=== PATIENT | female | born 1975 | race Caucasian/White ===

== ENCOUNTER 2021-10-18 14:00 | Outpatient (RCR) | payer OTHER, SELFPAY ==
--- NOTE | 2021-10-07 11:09 | PTOPEVAL ---
PHYSICAL THERAPY EVALUATION and PLAN OF CARE Thank you for referring Dede Conrad to [facility].? Dede will be seen in 2 weeks for follow-up and we will determine need for further follow-ups about every other week. Please review, sign, date and return this plan of care OTILIA. I agree with and certify that the following plan of care is medically necessary. Referring Physician Date Attending Provider: Debora Rios MD Evaluation Diagnosis stress incontinence Subjective Information Uses one liner throughout the Query Text:As Reported By Patient/ day. Will occasionally feel Family like she will leak without a stress event. States that using the stepper at the gym or squats at the gym she will leak Pain Score Pain Score 0: Self Report Lower Extremity Range of Motion General Lower Extremity Range of Motion Gross Lower Extremity Range of Motion limted bilateral hip internal Comments rotation, right>left Lower Extremity Muscle Strength Testing General Lower Extremity Strength Gross Lower Extremity Strength bilateral hip flexion: 4/5 knee flexion/extension: 5/5 adduction: 5/5 Pelvic Health Evaluation Pelvic Floor Assessment Permission Received for External/ Yes: external Internal Perineal Exam External Perineal Body Mobility Present Voluntary External Perineal Body Mobility Present Involuntary Sustained Levator Ani Strength 3+/5 for 5-6seconds Additional Comments palpated a good lift of levator ani through clothing; patient did note that this type of contraction felt different than the kegals she was trying to do at home. Pelvic Health Therapy Pelvic Health Exercise Isolated Levator Ani Contraction hooklying, 5-6seconds x10 reps Query Text:Position, Hold/Relaxation Time, Repetitions Overflow Technique, Hip Add with Ball hooklying with ball and with Hip, Hip Abd with Band band x10 of each; Query Text:Position, Hold/Relaxation Time, Repetitions Other Exercises education: normal bladder Query Text:Record Sets, Repetitions, function, abnormal bladder Resistance and Position function, difference between stress and urge incontinence; she describes to me an event that if she has a very full bladder she will void and feel complete. Then within a short time she will feel like she
--- NOTE | 2021-12-08 17:15 | PCPTNOTE ---
PHYSICAL THERAPY DISCHARGE SUMMARY Attending Provider: Debora Rios MD Patient:Dede Conrad Date of :1975 Dede participated in physical therapy for stress incontinence. She was provided with education regarding healthy bladder habits and habits to reduce leaks. She was also educated and instructed in pelvic floor strengthening. Her last attended visits was 10/18/21 at which time she requested to continue her exercises at home and would contact me if needed. We have received no communication in 2 months, therefore, we will D/C chart at this time. If she requires further care in the future we will be happy to assist. Thank you for referring this patient to [facility]. Please review, sign, date and return this discharge summary OTILIA. I have been updated about the patient's current status and I agree with discharge from the above service at this time. Referring Physician Date
== END 2021-12-09 09:26 | disposition home or self-care (01) ==
LOC: ANHPT 14:00
PROVIDERS: PCP Obstetrics & Gynecology; Visit Provider Obstetrics & Gynecology
DX: N39.3 Stress incontinence (female) (male) (principal)
CPT/HCPCS: 97110; 97112; 97162; 97530

== ENCOUNTER 2023-10-03 08:28 | Outpatient (CLI) | payer OTHER, SELFPAY ==
--- NOTE | ~2023-10-03 | MM_ITS ---
EXAMINATION: MM screening rosalba BI w negro HISTORY: Screening TECHNIQUE: Craniocaudal and mediolateral oblique 3-D tomosynthesis images were obtained and synthetic 2-D images were generated. CAD analysis was submitted and interpreted. COMPARISON: No prior mammogram is available for comparison at this institution. BREAST PARENCHYMAL COMPOSITION: Not dense: There are scattered areas of fibroglandular density. FINDINGS: There are bilateral breast asymmetries centered in the upper outer quadrant of both breasts . There are no suspicious calcifications or architectural distortion. IMPRESSION: 1. Bilateral breast asymmetries. 2. Recommend comparison to previous outside mammograms to assess stability. BI-RADS Category 0: Incomplete: Needs additional imaging evaluation. Reviewed, dictated and finalized at location A. E SPECIALIST
== END 2023-10-03 08:29 | disposition home or self-care (01) ==
LOC: CHSIMG 08:29
PROVIDERS: PCP Family Medicine; Visit Provider Family Medicine
DX: Z12.31 Encounter for screening mammogram for malignant neoplasm of breast (principal); R92.8 Other abnormal and inconclusive findings on diagnostic imaging of breast
CPT/HCPCS: 77063; 77067

== ENCOUNTER 2024-10-18 07:18 | Outpatient (CLI) | payer OTHER, SELFPAY ==
--- NOTE | ~2024-10-18 | MM_ITS ---
EXAMINATION: MM screening rosalba BI w negro HISTORY: Screening mammogram TECHNIQUE: Craniocaudal and mediolateral oblique 3-D tomosynthesis images were obtained and synthetic 2-D images were generated. CAD analysis was submitted and interpreted. COMPARISON: 10/03/2023, 09/24/2021 BREAST PARENCHYMAL COMPOSITION:Dense: The breasts are heterogeneously dense, which may obscure small masses. FINDINGS: No suspicious mass, calcification, or architectural distortion are identified in either shelby ast to suggest malignancy. There has been no suspicious interval change. IMPRESSION: No mammographic evidence of malignancy. Recommend routine screening mammography in one year. BI-RADS Category 1: Negative Reviewed, dictated and finalized at location .
--- OUTSIDE RECORDS SUMMARY | 2024-10-18 07:28 | XMS_ITS | Encounter Summary ---
Author Organization [facility] Address 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
--- OUTSIDE RECORDS SUMMARY | 2024-10-18 07:28 | XMS_ITS | Clinical Summary ---
Author Organization [facility] Address [address] [place] [address] Care Team Providers Care Ear Nose Throat Physician Name Role Phone Unavailable Primary Care Provider Unavailabl e Source Comments [facility] [employer],non-owned Affiliates and Associated Physician Practices is amultiple site organization consisting of ambulatory clinics and hospital sitesin [place], [place], [place] and [place]. This disclosure is being madepursuant to the Care Everywhere program and may not contain all information available regarding this patient. Last updated 18.[facility] [employer] Social History Tobacco Use Types Packs/Day Years Used Date Smoking Tobacco: Never Assessed Sex and Gender Information Value Date Recorded Sex Assigned at Not on file Gender Identity Not on file Sexual Orientation Not on file Plan of Treatment Health Maintenance Due Date Last Done Comments COLOGUARD (AGES 45-75) - COL ON CA SCREENING 1975 COLON MONITORING 1975 COLONOSCOPY - COLON CA SCREENING 1975 CT COLONOGRAPHY - COLON CA SCREENING 1975 Colorectal Cancer Screening 1975 FIT - COLON CA SCREENING 1975 FLEX SIG - COLON CA SCREENING 1975 LIPID TESTING 1975 MAMMOGRAM 1975 PAP SMEAR 1975 HIV SCREENING 1990 HEPATITIS C SCREENING 08/24/1993 DTAP/TDAP/TD VACCINES (1 - Tdap) 1994 HEPATITIS B VACCINE (1 of 3 - 19+ 3-dose series) 1994 COVID-19 VACCINE ( - 2023-2 5 season) 2024 INFLUENZA VACCINE (#1) 2024 DEPRESSION SCREENING 08/07/2024 ZOSTER VACCINE (1 of 2) 2025 HIB VACCINE Aged Out No longer eligi ble based on patient's age to complete this topic HPV VACCINE Aged Out No longer eligi ble based on patient's age to complete this topic MENINGOCOCCAL (Group B) VACC INE SHARED DECISION-MAKING Aged Out No longer eligibl e based on patient's age to complete this topic MENINGOCOCCAL GROUPS A/C/Y/W VACCINE Aged Out No longer eligible b ased on patient's age to complete this topic PNEUMOCOCCAL VACCINE Aged Out No long er eligible based on patient's age to complete this topic
--- OUTSIDE RECORDS SUMMARY | 2024-10-18 07:28 | XMS_ITS | Encounter Summary ---
Author Organization [facility] Address [address] [place] [address] Care Team Providers Care Loan Secretary Name Role Phone Unavailable Primary Care Provider Unavailabl e Encounter Details Date Type Department Care Team (Late st Contact Info) Description 05/25/2000 Outpatient Historical [facility] HERZOG Marsh, Jens Ellis MD [address] [place] [phone] Social History Tobacco Use Types Packs/Day Years Used Date Smoking Tobacco: Never Assessed Comments Unknown Sex and Gender Information Value Date Recorded Sex Assigned at Not on file Legal Sex Female 3:18 AM INSOLE DOUBLER Gender Identity Not on file Sexual Orientation Not on file documented as of this encounter Plan of Treatment Not on file documented as of this encounter Visit Diagnoses Not on filedocumented in this encounter
--- OUTSIDE RECORDS SUMMARY | 2024-10-18 07:28 | XMS_ITS | Referral Summary ---
Author Organization [facility] Address [address] [place] [address] Care Team Providers Care Linux Solaris Administrator Name Role Phone Unavailable Primary Care Provider Unavailabl e Source Comments [facility],non-owned Affiliates and Associated Physician Practices is amultiple site organization consisting of ambulatory clinics and hospital sitesin [place], [place], [place] and [place]. This disclosure is being madepursuant to the Care Everywhere program and may not contain all information available regarding this patient. Last updated 18.[facility] [employer] Social History Tobacco Use Types Packs/Day Years Used Date Smoking Tobacco: Never Assessed Sex and Gender Information Value Date Recorded Sex Assigned at Not on file Gender Identity Not on file Sexual Orientation Not on file Plan of Treatment Not on file
--- OUTSIDE RECORDS SUMMARY | 2024-10-18 07:28 | XMS_ITS | Encounter Summary ---
Author Organization [facility] Address [address] [place] [address] Care Team Providers Care Manager Psychiatry Name Role Phone Unavailable Primary Care Provider Unavailabl e Encounter Details Date Type Department Care Team (Late st Contact Info) Description 08/27/2002 Outpatient Historical [facility] FIRE CONTROL OFFICER - Medical [address] [address] Jens Marsh MD [address] [address] Social History Tobacco Use Types Packs/Day Years Used Date Smoking Tobacco: Never Assessed Comments Unknown Sex and Gender Information Value Date Recorded Sex Assigned at Not on file Legal Sex Female 3:18 AM YARDAGE CONTROL OPERATOR Gender Identity Not on file Sexual Orientation Not on file documented as of this encounter Plan of Treatment Not on file documented as of this encounter Visit Diagnoses Not on filedocumented in this encounter
--- OUTSIDE RECORDS SUMMARY | 2024-10-18 07:28 | XMS_ITS | Clinical Summary ---
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
--- OUTSIDE RECORDS SUMMARY | 2024-10-18 07:28 | XMS_ITS | Encounter Summary ---
Author Organization [facility] Address [address] [place] [address] Care Team Providers Care Senior Oracle Adf Developer Name Role Phone Unavailable Primary Care Provider Unavailabl e Encounter Details Date Type Department Care Team (Latest Contact Info) Description 05/29/2000 Outpatient Historical [facility]NON-PATIENT Jens Marsh MD [address] [place] [phone] Gynecological examination (Primary Dx) Social History Tobacco Use Types Packs/Day Years Used Date Smoking Tobacco: Never Assessed Comments Unknown Sex and Gender Information Value Date Recorded Sex Assigned at Not on file Legal Sex Female 3:18 AM FLAG SIGNALER Gender Identity Not on file Sexual Orientation Not on file documented as of this encounter Plan of Treatment Not on file documented as of this encounter Visit Diagnoses Diagnosis Gynecological examination- Primary documented in this encounter
--- OUTSIDE RECORDS SUMMARY | 2024-10-18 07:28 | XMS_ITS | Clinical Summary ---
Author Organization [facility] Address [address] [place] [address] Care Team Providers Care Lead Driver Name Role Phone No, Physician Primary Care Provider [phone] Allergies Active Allergy Reactions Criticality Noted Date Comments Codeine Mental status changes Reaction: CONFUSION, Sulfa (Sulfonamide Antibiotics) Nausea only,Vomiting Reaction: Nausea, Vomiting, Medications No known medications Active Problems Problem Noted Date Diagnosed Date Well woman exam 04/18/2019 Family history of BRCA2 gene positive 04/18/2019 Assessment & Plan (04/19/2019 3:41 PM CDT): Obtain mammogram Identified as high risk and start breast risk assessment program Dyspareunia, female 04/18/2019 Assessment & Plan (04/19/2019 3:41 PM CDT): -unknown etiology -wet mount normal, ph WNL -check imaging -nromal UA Abnormal cytology findings 09/18/2014 Overview (11/10/2016): LGSIL (low grade squamous intraepithelial dysplasia) Surgical History Surgery Date Site/Laterality Comments SECTION section OTHER SURGICAL HISTORY multiparity: Bilateral tubal ligation OTHER SURGICAL HISTORY Abnormal PAP: Colposcopy Medical History Medical History Date Comments Gestational diabetes mellitus (GDM) Diabetes gestational Hx Other Medical multiparity History of abnormal cervical Papanicolaou smear Abnormal PAP; Comments: [facility] [place]18[place] - Family History Medical History Relation Name Comments Breast cancer Cousin 1 Colon cancer Cousin 1 Pancreatic cancer Cousin 2 Lung cancer Other 1 Family history of Cancer -lung; Coronary artery disease Other 2 Fami ly history of Coronary artery disease; Diabetes type II Other 3 Family hist ory of Diabetes -Type II; Relation Name Status Comments Cousin 1 Cousin 2 Other 1 Other 2 Other 3 Social History Tobacco Use Types Packs/Day Years Used Date Smoking Tobacco: Never Smokeless Tobacco: Never Alcohol Use Standard Drinks/Week Comments Not Currently 0 (1 standard drink = 0.6 oz pur e alcohol) stopped 04/10/19 Personal Safety Answer Date Recorded Getting School Help Needed Not on file 10/19 Comments Unknown Sex and Gender Information Value Date Recorded Sex Assigned at Not on file Legal Sex Female 9:04 AM TERMITE CONTROL REPRESENTATIVE Gender Identity Not on file Sexual Orientation Not on file Obstetrics History Last Filed Vital Signs Vital Sign Reading Time Taken Comments Blood Pressure 112/70 04/18/2019 8:23 AM CDT Pulse 88 01/28/2016 10:57 AM CDT Temperature - - Respiratory Rate - - Oxygen Saturation - - Inhaled Oxygen Concentration - - Weight 69.9 kg (154 lb) 04/18/2019 8:23 AM CDT Height 162.6 cm (5' 4 ) 04/18/2019 8:23 AM CDT Body Mass Index 26.43 04/18/2019 8:23 AM CDT Plan of Treatment Not on file Insurance [employer] [place] [address] [employer] Care Teams Lead Driver Relationship Specialty Start Date End Date No, Physician PCP - General 05/23/19
--- OUTSIDE RECORDS SUMMARY | 2024-10-18 07:28 | XMS_ITS | Clinical Summary ---
Author Organization [facility] Address [address] [place] [address] Care Team Providers Care Internal Recruiter Name Role Phone Unavailable Primary Care Provider Unavailabl e Allergies Active Allergy Reactions Criticality Noted Date Comments Sulfa Antibiotics Vomiting Medium 07/07/2020 Medications vitamin D3, cholecalciferol, 75 MCG (3000 UT) Tab tablet Take 3,000 Units by mouth daily. Active vitamin C 250 MG tablet Take 250 mg by mouth daily. Active Apple Cider Vinegar 500 MG Tab Active Social History Tobacco Use Types Packs/Day Years Used Date Smoking Tobacco: Never Smokeless Tobacco: Never Alcohol Use Standard Drinks/Week Comments Yes 3.3 (1 standard drink = 0.6 oz p ure alcohol) Comments Unknown Sex and Gender Information Value Date Recorded Sex Assigned at Not on file Legal Sex Female 3:47 PM CDT Gender Identity Not on file Sexual Orientation Not on file Last Filed Vital Signs Vital Sign Reading Time Taken Comments Blood Pressure 100/66 07/14/2020 9:45 AM SERVICE SUPERVISOR Pulse 57 07/14/2020 9:45 AM SERVICE SUPERVISOR Temperature 36.8 C (98.2 F) 07/14/2020 9:09 AM SERVICE SUPERVISOR Respiratory Rate 15 07/14/2020 9:45 AM SERVICE SUPERVISOR Oxygen Saturation 100% 07/14/2020 9:45 AM SERVICE SUPERVISOR Inhaled Oxygen Concentration - - Weight 63.5 kg (140 lb) 07/07/2020 2:59 PM SERVICE SUPERVISOR Height 162.6 cm (5' 4 ) 07/07/2020 2:59 PM SERVICE SUPERVISOR Body Mass Index 24.03 07/07/2020 2:59 PM SERVICE SUPERVISOR Plan of Treatment Health Maintenance Due Date Last Done Comments Cervical Cancer Screening Pa p Smear (Age 30 to 64) Every 3 Years 1975 Annual Physical 1978 Hepatitis C 1993 DTaP, Tdap and Td Vaccines ( 1 - Tdap) 1994 Hepatitis B Vaccines (1 of 3 - 19+ 3-dose series) 1994 Cervical Cancer Screening Pa p with HPV Testing (Age 30 to 64) Every 5 Years 2005 Cervical Cancer Screening wi th HPV 2005 Mammogram Screening 2015 COVID-19 Vaccine (2023-2 5 season) 2024 Influenza Adult (#1) 2024 Colorectal Cancer Screening Colonoscopy (10 Years) 07/14/2030 07/14/2020, 07/14/2020 Meningococcal B Vaccine Aged Out No l onger eligible based on patient's age to complete this topic Meningococcal Vaccine Aged Out No chivo alisia eligible based on patient's age to complete this topic Pneumococcal Vaccine: Pediatrics (0 to 5 Years) and At-Risk Patients (6 to 64 Years) Aged Out No longer eligible b ased on patient's age to complete this topic RSV Immunizations Under 20 Months Aged Out No longer eligible b ased on patient's age to complete this topic Procedures Procedure Name Priority Date/Time Associated Diagnosis Comments COLONOSCOPY Routine 07/14/2020 8:42 AM SERVICE SUPERVISOR from Last 3 Months or Most Recently Relevant to Health Maintenance Results * Colonoscopy (07/14/2020 8:42 AM SERVICE SUPERVISOR) Narrative Nick Porter MD - 07/14/2020 8:42 AM SERVICE SUPERVISOR Nick Porter MD 07/14/2020 9:13 AM NICK PORTER MD, FACG, FACP COLONOSCOPY This is a 44-year-old female with history of x 1, tubal ligation and stress/anxiety who now presents for colonoscopy for family history of colon cancer in her brother. GI review of systems is negative. No endocarditis risk factors. Allergies: Sulfa (N/V/D). Medications: see list. VITALS: Stable. LUNGS: Clear. HEART: RRR. S1/S2 normal. ABDOMEN: NABS/NT. The procedure of colonoscopy, its indications, alternatives of barium studies and risks including perforation, bleeding, infection, reaction to medication as well as the possible need for blood or surgery were discussed with the patient prior to the procedure. The patient voices understanding, agrees to proceed and provides informed consent. INDICATION: Screening for colon cancer/Family history of colon cancer. POST-OP: One polyp removed. SEDATION: Per anesthesia. PREP: Good. With the patient in the left lateral decubitus position, the Olympus [id number] colonoscope was introduced into the rectum and advanced easily to the Terminal Ileum. Careful inspection of the mucosa was made upon insertion and withdrawal of the endoscope. FINDINGS: Terminal ileum: distal 5 cm normal. Cecum, transverse colon, descending colon, sigmoid colon and rectum including retroflexion normal. Ascending colon: 8 mm sessile polyp removed with cold snare polypectomy without bleed. No masses, AVMs, colitis or diverticulosis seen. No complications, blood loss or implants. ASSESSMENT AND PLAN: Screening for colon cancer/Family history of colon cancer: - One polyp removed and family history of colon cancer - If no cancer, repeat colonoscopy in five years Thank you for allowing me to care for your patient. She will follow-up with Dr. Crisostomo as needed. Nick Porter M.D. Nick Porter MD GI PROCEDURE ORDERABLES Fin al Result from Last 3 Months or Most Recently Relevant to Health Maintenance Insurance
--- OUTSIDE RECORDS SUMMARY | 2024-10-18 07:28 | XMS_ITS | Patient Health Summary ---
Author Organization [facility] Address [address] [place] [address] Care Team Providers Care Tieing Machine Operator Name Role Phone Unavailable Primary Care Provider Unavailabl e Note from [facility],non-owned Affiliates and Associated Physician Practices is amultiple site organization consisting of ambulatory clinics and hospital sitesin [place], [place], [place] and [place]. This disclosure is being madepursuant to the Care Everywhere program and may not contain all information available regarding this patient. Last updated 18.[facility] [employer] Social History Tobacco Use Types Packs/Day Years Used Date Smoking Tobacco: Never Assessed Sex and Gender Information Value Date Recorded Sex Assigned at Not on file Gender Identity Not on file Sexual Orientation Not on file Procedures * GROSS + MICRO EXAM(Performed 10/21/1994) Results * GROSS + MICRO EXAM (10/21/1994 1:53 PM COMPOSITION MIXER) Result CASE NUMBER [id number] Comment: ORDERING PHYSICIAN ASHLEY WHALEN SPECIMEN TYPE Ganglion Cyst Preop Dx Synovial cyst left wrist Postop Dx None stated Clinical Findings None stated GROSS DESCRIPTION In histochoice labeled ganglion left wrist is 8 mm. parnell tissue fragment submitted as received in one cassette. (marie)nm BLOCK A - Soft tissue left wrist Grossed by Ariel Black M.D. MICROSCOPIC EXAMINATION Sections show ganglion cyst. (alejandrol)c DIAGNOSIS Soft tissue from left wrist, excision - Ganglion cyst Read by Ariel Black M.D. Released By ARIEL BLACK MISCELLANEOUS SAMPLES / Unknown 10/21/1994 1:53 PM COMPOSITION MIXER 10/21/1994 1:53 PM COMPOSITION MIXER Historical Provider LAB - PATHOLOGY/C YTOLOGY ORDERABLES
--- OUTSIDE RECORDS SUMMARY | 2024-10-18 07:28 | XMS_ITS | Encounter Summary ---
Author Organization [facility] Address [address] [place] [id number] Care Team Providers Care Delinquent Notice Machine Operator Name Role Phone Unavailable Primary Care Provider Unavailabl e Encounter Details Date Type Department Care Team (Late st Contact Info) Description 07/14/2020 Prep for Procedure [facility] [place], [place] [id number] Nick Porter MD [address] [phone] Social History Tobacco Use Types Packs/Day Years Used Date Smoking Tobacco: Never Smokeless Tobacco: Never Alcohol Use Standard Drinks/Week Comments Yes 3.3 (1 standard drink = 0.6 oz p ure alcohol) Comments Unknown Sex and Gender Information Value Date Recorded Sex Assigned at Not on file Legal Sex Female 3:47 PM CDT Gender Identity Not on file Sexual Orientation Not on file COVID-19 Exposure Response Date Recorded In the last month, have you been in contact with someone who was confirmed or suspected to have Coronavirus / COVID-19? No / Unsure 07/14/2020 7:50 AM INSPECTION CLERK documented as of this encounter Plan of Treatment Not on file documented as of this encounter Results * PRE-SURGICAL/PRE-PROCEDURE CORONAVIRUS (COVID 19) (07/11/2020 10:21 AM INSPECTION CLERK) CORONAVIRUS SARS COV 2 PCR (RESP) NOT DETECTED NOT DETECTED 07/12/2020 5:52 PM INSPECTION CLERK [facility] Comment: A Not Detected (negative) test result for this test means that SARS- CoV-2 RNA was not present in the specimen above the limit of detection. A negative result does not rule out the possibility of COVID-19 and should not be used as the sole basis for treatment or patient management decisions. If COVID-19 is still suspected, based on exposure history together with other clinical findings, re-testing should be considered in consultation with public health authorities. Laboratory test results should always be considered in the context of clinical observations and epidemiological data in making a final diagnosis and patient management decisions. Please review the Fact Sheets and FDA authorized labeling available for health care providers and patients using the following websites: https://[email or web address].PollVaultr/home/Covid-19/HCP/NAAT/fact-sheet2 [email or web address]://[email or web address].PollVaultr/home/Covid-19/Patients/NAAT/ fact-sheet2 This test has been authorized by the FDA under an Emergency Use Authorization (EUA) for use by authorized laboratories. Due to the current public health emergency, [facility] is receiving a high volume of samples from a wide variety of swabs and media for COVID-19 testing. In order to serve patients during this public health crisis, samples from appropriate clinical sources are being tested. Negative test results derived from specimens received in non-commercially manufactured viral collection and transport media, or in media and sample collection kits not yet authorized by FDA for COVID-19 testing should be cautiously evaluated and the patient potentially subjected to extra precautions such as additional clinical monitoring, including collection of an additional specimen. Methodology: Nucleic Acid Amplification Test (NAAT) includes RT-PCR or TMA Additional information about COVID-19 can be found at the [facility] website: [email or web address].PollVaultr/Covid19. Test performed at [facility] [address] [address] Director: LIONEL PONCE DO,MPH FIRST TEST YES 07/11/2020 10:48 AM [facility] EMPLOYED IN HEALTHCARE NO 07/11/2020 10:48 AM [facility] SYMPTOMATIC DEFINED BY CDC NO 07/11/2020 10:48 AM [facility] DATE OF SYMPTOM ONSET NO 07/11/2020 12:09 PM [facility] HOSPITALIZATION STATUS NO 07/11/2020 10:48 AM INSPECTION CLERK [facility] PATIENT IN ICU NO 07/11/2020 10:48 AM INSPECTION CLERK [facility] RESIDENT OF CONGREGATE CARE UNKNOWN 07/11/2020 10:48 AM INSPECTION CLERK [facility] NOT 07/11/2020 10:48 AM INSPECTION CLERK [facility] PATIENT'S RACE WHITE OR 07/11/2020 10:48 AM INSPECTION CLERK [facility] ETHNICITY NONHISPANIC 07/11/2020 10:48 AM INSPECTION CLERK [facility] SOURCE (QST) NASOPHARYNGEAL SWAB 07/11/2020 10:48 AM INSPECTION CLERK [facility] NASOPHARYNGEAL SWAB / Unknown 07/11/2020 10:21 AM INSPECTION CLERK us Nick Porter MD MICROBIOLOGY - GENERAL KELBY DE PAZ Final Result [facility] [address] [place] [address], [place] [phone] [facility] [id number] [place] [id number], documented in this encounter Visit Diagnoses Diagnosis Colon cancer screening- Primary Special screening for malignant neoplasms, colon documented in this encounter
--- OUTSIDE RECORDS SUMMARY | 2024-10-18 07:28 | XMS_ITS | Encounter Summary ---
Author Organization [facility] Address [address] [place] [address] Care Team Providers Care Manager Studio Name Role Phone Unavailable Primary Care Provider Unavailabl e Encounter Details Date Type Department Care Team (Late st Contact Info) Description 12/26/2002 Outpatient Historical 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
--- OUTSIDE RECORDS SUMMARY | 2024-10-18 07:28 | XMS_ITS | Referral Summary ---
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 [employer] Care Teams Infrastructure Consultant Relationship Specialty Start Date End Date No, Physician PCP - General 05/23/19
== END 2024-10-18 07:19 | disposition home or self-care (01) ==
PROVIDERS: PCP Family Medicine; Visit Provider Nurse Practitioner
DX: Z12.31 Encounter for screening mammogram for malignant neoplasm of breast (principal)
CPT/HCPCS: 77063; 77067